=== PATIENT | male | born 1940 | race Caucasian/White ===

== ENCOUNTER 2019-07-04 08:10 | Day surgery (SDC) | payer OTHER ==
[~2019-07-04 08:10] MED LIST: ATACAND HCT 11 UDTAB PO; ATORVASTATIN CA20 MG PO; COREG PO; FENOFIBRATE40 MG PO; GLUMETZA1000 MG PO; INTESTINEX680 MG PO; JANUVIA50 MG PO; OMEPRAZOLE20 MG PO; PLAVIX75 MG PO; SYNTHROID88 MCG PO; [UNRECOGNIZED DRUG - OTHER] PO
== END 2019-07-04 13:20 | disposition home or self-care (01) ==
LOC: AMB-ENDOS 08:10 → ADM 13:00 → CIR.AMB 13:00 → AMB-ENDOS 13:20
DX: D12.3 Benign neoplasm of transverse colon (principal)

== ENCOUNTER 2020-10-22 06:20 | Day surgery (SDC) | payer OTHER | END 2020-10-22 10:15 | disposition home or self-care (01) | LOC: AMB-ENDOS 06:20 | PROVIDERS: ATTEND Surgery | DX: D12.4 Benign neoplasm of descending colon (principal); Z20.828 Contact with and (suspected) exposure to other viral communicable diseases ==